=== PATIENT | male | born 1955 | race African-American/Black ===

== ENCOUNTER 2018-03-28 10:03 | Emergency (ER) | payer MEDICAID, MEDICARE ==
[~2018-03-28] VITALS: Ht 170.2 cm; Wt 102.0 kg
[2018-03-28] MEDS ORDERED: ATEN100T PO (10:19)
[2018-03-28] MEDS ORDERED: CLOP75TA33 PO (10:19)
[2018-03-28] MEDS ORDERED: ASPI-986 PO (10:19)
[2018-03-28] MEDS ORDERED: BENA20TA10 PO (10:19)
[2018-03-28] MEDS ORDERED: CLON1TAB23 PO (10:19)
[2018-03-28] MEDS ORDERED: HYDR25TA PO (10:19)
[2018-03-28] MEDS ORDERED: AMLO5TAB88 PO (10:19)
[2018-03-28] MEDS ORDERED: SIMV40TA5 PO (10:19)
[2018-03-28] MEDS ORDERED: ONDANSETRON HCL 4MG/2ML INJ IV STA (10:39)
[2018-03-28] MEDS ORDERED: SODIUM CHLORIDE 0.9% 1,000 ML IV ONE (10:39)
[2018-03-28] MEDS ORDERED: MORPHINE SULFATE 4 MG/ML CPJ (NOT FOR IM USE) IV STA (10:39)
[2018-03-28 11:42] LABS: BASOPHILS % 0.3 % (0.0-2.0); EOSINOPHILS % 0.2 % (0.0-5.0); HEMATOCRIT. 44.9 % (42.0-52.0); HEMOGLOBIN. 15.2 g/dL (14.0-18.0); LYMPHOCYTES % 9.6 % (20.0-50.0); MEAN CORPUSCULAR HEMOGLOBIN 28.4 pg (28.0-32.0); MONOCYTES % 10.7 % (2.0-8.0); NEUTROPHILS % 79.2 % (40.0-76.0); PLATELET 223 x1000/uL (130-400); RED BLOOD CELL COUNT 5.34 mill/uL (4.7-6.1)
[2018-03-28 11:43] LABS: CHLORIDE 96 mEq/L (98-107); PROTHROMBIN TIME 10.4 sec (9.1-11.1)
[2018-03-28] MEDS ORDERED: KETOROLAC 30MG/ML VIAL IV NR (12:00)
[2018-03-28 14:25] VITALS: BP 95/53
== END 2018-03-28 14:32 | disposition home or self-care (01) ==
LOC: ER 10:51
DX: M10.061 Idiopathic gout, right knee (principal); N28.9 Disorder of kidney and ureter, unspecified; I25.2 Old myocardial infarction; Z95.5 Presence of coronary angioplasty implant and graft
CPT/HCPCS: 36415; 73560; 80053; 84550; 85025; 85610; 86140; 96374; 96375; 99285; J1885; J2270; J2405; J7030; L1830